=== PATIENT | female | born 1965 | race Caucasian/White ===

== ENCOUNTER 2019-03-31 17:34 | Emergency (ER) | payer OTHER ==
[2019-03-31 17:46] VITALS: BP 155/89
--- NOTE | 2019-03-31 17:54 | ED Physician Documentation ---
PD [facility] HEENT - Stated complaint Stated Complaint: RIGHT EAR PX - Chief complaint Chief Complaint: Heent - History obtained from History obtained from: Patient - History of Present Illness Timing - onset: How many weeks ago (2) Timing - duration: Weeks (2) Timing - details: Gradual onset, Still present, Waxing and waning Location: Right ear Improves: No: Medication (tried peroxide and cleaning ear without improvement) Associated symptoms: No: Fever, Congestion, Swollen nodes, Facial swelling Similar symptoms before: Has not had sx before Recently seen: Not recently seen Review of Systems Constitutional: denies: Fever, Chills, Myalgias Ears: reports: Ear pain (right ear, more itching and burning, and not pain per se.). denies: Loss of hearing, Drainage/discharge, Tinnitus/ringing Nose: denies: Rhinorrhea / runny nose, Congestion Throat: denies: Sore throat Respiratory: denies: Cough Skin: denies: Rash PD PAST MEDICAL HISTORY - Past Medical History Cardiovascular: None Respiratory: None Neuro: None Endocrine/Autoimmune: None - Present Medications Home Medications: Ambulatory Orders Medication Instructions Recorded Confirmed Clotrimazole 3 drops RIGHTEAR QID #1 bottle 03/31/19 Ipratropium [place] [Atrovent Hfa] 03/31/19 03/31/19 Levothyroxine Sodium [Synthroid] 275 mcg PO DAILY 03/31/19 03/31/19 Liothyronine Sodium 15 mcg PO DAILY 03/31/19 03/31/19 Loratadine 10 mg PO DAILY 03/31/19 03/31/19 Melatonin 5 mg PO QPM 03/31/19 03/31/19 Metoprolol Tartrate 50 mg DAILY 03/31/19 03/31/19 Metoprolol Tartrate 100 mg PO QPM 03/31/19 03/31/19 Neomycin/Polymyx/Hc Otic Drops 3 drops OT QID #1 bottle 03/31/19 [Cortisporin Ear Susp] Sertraline [Zoloft] 1 tab DAILY 03/31/19 03/31/19 Telmisartan/Hydrochlorothiazid 1 tab DAILY 03/31/19 03/31/19 [Micardis Hct 80-25 mg Tablet] - Allergies Allergies/Adverse Reactions: Allergies Allergy/AdvReac Type Severity Reaction Status Date / Time Penicillins Allergy Unknown Verified 07/18/19 17:46 PD ED PE NORMAL - Vitals Vital signs reviewed: Yes - General General: Alert and oriented X 3, Well developed/nourished - HEENT HEENT: Moist mucous membranes, Pharynx benign. No: Ears normal (left is normal; right with normal TM but outer part of the canal showing redness and some mild swelling. No exudate per se. No wax. ) - Neck Neck: Supple, no meningeal sign, Other (right preauricular small node. ) - Cardiac Cardiac: RRR, No murmur - Respiratory Respiratory: Clear bilaterally - Derm Derm: Normal color, Warm and dry Results - Vitals Vitals: Vital Signs - 24 hr 03/31/19 17:42 Temperature 36.4 C L Heart Rate 50 L Respiratory 16 Rate Blood Pressure 155/89 H O2 Saturation 97 Oxygen O2 Source Room air Departure - Departure Disposition: 01 Home, Self Care Clinical Impression: Otitis externa, fungal, right ear Condition: Stable Record reviewed to determine appropriate education?: Yes Instructions: ED Otitis Externa Prescriptions: Clotrimazole 3 drops RIGHTEAR QID #1 bottle Neomycin/Polymyx/Hc Otic Drops [Cortisporin Ear Susp] 3 drops OT QID #1 bottle Comments: Does look like an infection of the ear canal with some mild swelling. It actually looks possibly fungal though these can be bacterial as well. Use both the Cortisporin antibiotic eardrops as well as the Chlortrimazole antifungal drops 3-4 times a day for the next 4 to 5 days in that ear canal. To put drops in the ear, keep your head to the side so the ear is pointed upward and put the drops in the canal and let them settle down into the canal well and then tip your head upright and blot out the excess that drains out. Recheck if not improved over the next several days. The eardrum appears normal and he should not have any problems with flying or pressure changes. Discharge Date/Time: 03/31/19 18:30
== END 2019-03-31 18:30 | disposition home or self-care (01) ==
LOC: EDSEX → ED 17:34
DX: H60.8X1 Other otitis externa, right ear (principal)
CPT/HCPCS: 99282; 99284

== ENCOUNTER 2019-10-16 17:44 | Emergency (ER) | payer OTHER ==
[2019-10-16 17:52] VITALS: BP 146/90
--- NOTE | 2019-10-16 18:03 | ED Physician Documentation ---
PD HPI URI - Stated complaint Stated Complaint: SORE THROA,FEVER,HERNANDEZ - Chief complaint Chief Complaint: Fever - History obtained from History obtained from: Patient (She has been sick for about 50 hours with muscle aches, especially in the legs, fevers and chills, and a sore throat. No recent travel. 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.) Review of Systems Ten Systems: 10 systems reviewed and negative Constitutional: reports: Fever, Chills, Myalgias, Fatigue Nose: reports: Rhinorrhea / runny nose Throat: reports: Sore throat Respiratory: denies: Cough GI: denies: Vomiting, Diarrhea PD PAST MEDICAL HISTORY - Past Medical History Cardiovascular: None Respiratory: None Neuro: None Endocrine/Autoimmune: None - Past Surgical History Past Surgical History: Yes - Present Medications Home Medications: Ambulatory Orders Medication Instructions Recorded Confirmed Clotrimazole 3 drops RIGHTEAR QID #1 bottle 03/31/19 Ipratropium [place] [Atrovent Hfa] 03/31/19 03/31/19 Levothyroxine Sodium [Synthroid] 275 mcg PO DAILY 03/31/19 03/31/19 Liothyronine Sodium 15 mcg PO DAILY 03/31/19 03/31/19 Loratadine 10 mg PO DAILY 03/31/19 03/31/19 Melatonin 5 mg PO QPM 03/31/19 03/31/19 Metoprolol Tartrate 50 mg DAILY 03/31/19 03/31/19 Metoprolol Tartrate 100 mg PO QPM 03/31/19 03/31/19 Neomycin/Polymyx/Hc Otic Drops 3 drops OT QID #1 bottle 03/31/19 [Cortisporin Ear Susp] Sertraline [Zoloft] 1 tab DAILY 03/31/19 03/31/19 Telmisartan/Hydrochlorothiazid 1 tab DAILY 03/31/19 03/31/19 [Micardis Hct 80-25 mg Tablet] - Allergies Allergies/Adverse Reactions: Allergies Allergy/AdvReac Type Severity Reaction Status Date / Time Penicillins Allergy Unknown Verified 10/16/19 17:50 - Social History Does the pt smoke?: No Smoking Status: Never smoker PD ED PE NORMAL - Vitals Vital signs reviewed: Yes - General General: Alert and oriented X 3, No acute distress - HEENT HEENT: Ears normal, Pharynx benign - Neck Neck: Supple, no meningeal sign, No bony TTP - Cardiac Cardiac: RRR, No murmur - Respiratory Respiratory: No respiratory distress, Clear bilaterally - Abdomen Abdomen: Non tender - Derm Derm: No rash - Extremities Extremities: No edema, No calf tenderness / cord - Neuro Neuro: Alert and oriented X 3, No motor deficit, No sensory deficit, Normal speech Results - Vitals Vitals: Vital Signs - 24 hr 10/16/19 17:50 Temperature 37.4 C Heart Rate 78 Respiratory 17 Rate Blood Pressure 146/90 H O2 Saturation 95 Oxygen O2 Source Room air - Labs Labs: Laboratory Tests 10/16/19 10/16/19 18:15 18:15 Influenza A (Rapid) Negative Influenza B (Rapid) Negative Group A Strep Rapid Negative PD MEDICAL DECISION MAKING - ED course ED course: Seems like the flu, her flu swab is negative though. Could be a false negative but somewhat inconsequential in this otherwise healthy woman who is has been sick for about 58 hours now. Departure - Departure Disposition: 01 Home, Self Care Clinical Impression: Viral syndrome Condition: Good Record reviewed to determine appropriate education?: Yes Instructions: ED Viral Syndrome Comments: You were seen today for what frankly sounds like influenza, both flu and strep swabs were negative. Ibuprofen as needed for symptoms. Drink plenty of fluids, return for new or worsening symptoms. Follow-up with your doctor midweek if not better. Forms: Activity restrictions
[2019-10-16 18:24] LABS: RAPID STREP SCREEN Negative (Negative)
== END 2019-10-16 18:35 | disposition home or self-care (01) ==
LOC: ED 17:44
DX: B34.9 Viral infection, unspecified (principal)
CPT/HCPCS: 87070; 87275; 87276; 87430; 99283

== ENCOUNTER 2020-03-18 10:58 | Emergency (ER) | payer OTHER ==
--- NOTE | 2020-03-18 11:25 | ED Physician Documentation ---
PD HPI LOWER EXT INJURY - Stated complaint Stated Complaint: LT FOOT INJURY - Chief complaint Chief Complaint: Ext Problem - History obtained from History obtained from: Patient - History of Present Illness PD HPI LOW EXT INJURY LOCATION: Left, Ankle, Foot Type of injury: Twist (inversion of ankle as stepped off deck step accidentally into a small hole in ground while carrying plate of food. Caused her to fall forward/left. Pain and swelling to lateral foot and ankle.) Timing - onset: Yesterday Timing - details: Abrupt onset, Still present (more painful and swollen today.) Worsened by: Moving, Palpating, Other (weight bearing) Associated symptoms: Swelling, Discolored (bruising). 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 Psych: Depression Musculoskeletal: None - Past Surgical History Past Surgical History: Yes /INDUCTION HEAT TREATER: Dilation and currettage - Present Medications Home Medications: Ambulatory Orders Medication Instructions Recorded Confirmed Clotrimazole 3 drops RIGHTEAR QID #1 bottle 03/31/19 Ipratropium [place] [Atrovent Hfa] 03/31/19 03/31/19 Levothyroxine Sodium [Synthroid] 275 mcg PO DAILY 03/31/19 03/31/19 Liothyronine Sodium 15 mcg PO DAILY 03/31/19 03/31/19 Loratadine 10 mg PO DAILY 03/31/19 03/31/19 Melatonin 5 mg PO QPM 03/31/19 03/31/19 Metoprolol Tartrate 50 mg DAILY 03/31/19 03/31/19 Metoprolol Tartrate 100 mg PO QPM 03/31/19 03/31/19 Neomycin/Polymyx/Hc Otic Drops 3 drops OT QID #1 bottle 03/31/19 [Cortisporin Ear Susp] Sertraline [Zoloft] 1 tab DAILY 03/31/19 03/31/19 Telmisartan/Hydrochlorothiazid 1 tab DAILY 03/31/19 03/31/19 [Micardis Hct 80-25 mg Tablet] - Allergies Allergies/Adverse Reactions: Allergies Allergy/AdvReac Type Severity Reaction Status Date / Time Penicillins Allergy Unknown Verified 03/18/20 11:13 - Social History Does the pt smoke?: No Smoking Status: Never smoker Does the pt drink ETOH?: Yes Does the pt have substance abuse?: No - Immunizations Immunizations are current?: Yes - POLST Patient has POLST: No PD ED PE NORMAL - Vitals Vital signs reviewed: Yes - General General: Alert and oriented X 3, No acute distress, Well developed/nourished - Derm Derm: Normal color, Warm and dry - Extremities Extremities: Other (left foot and ankle with swelling and bruising anterolateral ankle and at the proximal 5th MT area. No tenderness above the malleoli. Medially not tender. Normal color and cap refill at toes. ) - Neuro Neuro: No motor deficit, No sensory deficit Results - Vitals Vitals: Vital Signs - 24 hr 03/18/20 03/18/20 11:11 12:24 Temperature 36.9 C 36.6 C Heart Rate 58 L 59 L Respiratory 18 16 Rate Blood Pressure 172/82 H 155/79 H O2 Saturation 99 98 Oxygen O2 Source Room air - Rads (name of study) left foot Radiology: Prelim report reviewed (nondisplaced proximal 5th MT fracture.), See rad report PD MEDICAL DECISION MAKING - ED course Complexity details: reviewed results, considered differential, d/w patient Departure - Departure Disposition: 01 Home, Self Care Clinical Impression: Inversion sprain of left ankle Qualifiers: Encounter type: initial encounter Qualified Code(s): S93.402A - Sprain of unspe cified ligament of left ankle, initial encounter Fracture of 5th metatarsal Qualifiers: Encounter type: initial encounter Fracture type: closed Fracture alignment: nondisplaced Laterality: left Qualified Code(s): S92.355A - Nondisplaced fracture of fifth metatarsal bone, left foot, initial encounter for closed fracture Condition: Stable Record reviewed to determine appropriate education?: Yes Instructions: Fifth Metatarsal Fx Follow-Up: Fritz Moore MD [Primary Care Provider] - Comments: Anti-inflammatories such as naproxen or ibuprofen 2-3 times a day. To that add Tylenol if needed for pains. Elevate rest and ice the foot often today and tomorrow to reduce swelling. Minimal standing or walking for the next 4 to 5 days to reduce swelling and allow improved pain control. Follow-up with your primary care in about a week for reevaluation and likely re-x-ray to ensure the fracture piece is holding position. Use the cast boot over the next 3 to 4 weeks and progress activity at the direction of your primary care, or better yet, orthopedics. Crutches as needed for partial to no weightbearing initially until follow-up and progress use at the direction of orthopedics Forms: Activity restrictions Discharge Date/Time: 03/18/20 12:24
--- NOTE | 2020-03-18 11:52 | XRAY Report ---
PROCEDURE: Foot 3 View LT INDICATIONS: fall TECHNIQUE: 3 views of the foot were acquired. COMPARISON: None FINDINGS: Bones: Horizontal minimally displaced base of fifth metatarsal fracture. No other fractures or disloc ations. No suspicious bony lesions. Soft tissues: No tibiotalar joint effusion. Achilles tendon appears normal. IMPRESSION: 1. Minimally displaced base of fifth metatarsal fracture. Reviewed by: José Cuellar MD on 03/18/2020 10:51 AM JOI Approved by: José Cuellar MD on 03/18/2020 10:51 AM JOI Station ID: [id number]
[2020-03-18 12:26] VITALS: BP 155/79
== END 2020-03-18 12:24 | disposition home or self-care (01) ==
LOC: ED 10:58
DX: S92.355A Nondisplaced fracture of fifth metatarsal bone, left foot, initial encounter for closed fracture (principal); S93.402A Sprain of unspecified ligament of left ankle, initial encounter; X50.1XXA Overexertion from prolonged static or awkward postures, initial encounter; Y93.01 Activity, walking, marching and hiking
CPT/HCPCS: 99283

== ENCOUNTER 2022-11-23 19:15 | Emergency (ER) | payer OTHER ==
[2022-11-23 19:27] VITALS: BP 157/106
[2022-11-23 19:41] LABS: BILIRUBIN,URINE NEGATIVE (NEGATIVE); GLUCOSE, URINE (UA) NEGATIVE (NEGATIVE); KETONES,URINE (UA) NEGATIVE (NEGATIVE); LEUKOCYTE ESTERASE, URINE MODERATE (NEGATIVE); NITRITE,URINE NEGATIVE (NEGATIVE); OCCULT BLOOD,URINE LARGE (NEGATIVE); PROTEIN,URINE 30 mg/dL (NEGATIVE); UROBILINOGEN,URINE 0.2 (NORMAL) E.U./dL (NORMAL)
[2022-11-23 19:47] LABS: CLARITY,URINE CLOUDY (CLEAR)
--- NOTE | 2022-11-23 19:47 | ED Physician Documentation ---
PD HPI FEMALE - Stated complaint Stated Complaint: FEMALE - Chief complaint Chief Complaint: UTI - History obtained from History obtained from: Patient - Additional information Additional information: 56-year-old woman developed burning dysuria and frequency 2 days ago. It got better yesterday but worse again today. Today it is associated with hematuria. No flank pain. She does not get frequent UTIs. Last was when she was in college. 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 - Present Medications Home Medications: Ambulatory Orders Medication Instructions Recorded Confirmed Clotrimazole 3 drops RIGHTEAR QID #1 bottle 03/31/19 Ipratropium [place] [Atrovent Hfa] 03/31/19 03/31/19 Levothyroxine Sodium [Synthroid] 275 mcg PO DAILY 03/31/19 03/31/19 Liothyronine Sodium 15 mcg PO DAILY 03/31/19 03/31/19 Loratadine 10 mg PO DAILY 03/31/19 03/31/19 Melatonin 5 mg PO QPM 03/31/19 03/31/19 Metoprolol Tartrate 50 mg DAILY 03/31/19 03/31/19 Metoprolol Tartrate 100 mg PO QPM 03/31/19 03/31/19 Neomycin/Polymyx/Hc Otic Drops 3 drops OT QID #1 bottle 03/31/19 [Cortisporin Ear Susp] Sertraline [Zoloft] 1 tab DAILY 03/31/19 03/31/19 Telmisartan/Hydrochlorothiazid 1 tab DAILY 03/31/19 03/31/19 [Micardis Hct 80-25 mg Tablet] Nitrofurantoin [Macrobid] 1 cap PO BID #10 cap 11/23/22 Phenazopyridine HCl [Pyridium] 200 mg PO TID PRN #6 tablet 11/23/22 - Allergies Allergies/Adverse Reactions: Allergies Allergy/AdvReac Type Severity Reaction Status Date / Time Penicillins Allergy Unknown Verified 11/23/22 19:27 - Social History Does the pt smoke?: No Smoking Status: Never smoker Does the pt drink ETOH?: Yes Does the pt have substance abuse?: No - Immunizations Immunizations are current?: Yes - POLST Patient has POLST: No PD ED PE NORMAL - Vitals Vital signs reviewed: Yes - General General: Alert and oriented X 3, No acute distress - Abdomen Abdomen: Non tender - Back Back: No CVA TTP - Neuro Neuro: Alert and oriented X 3, Normal speech Results - Vitals Vitals: Vital Signs - 24 hr 11/23/22 19:23 Temperature 36.8 C Heart Rate 65 Respiratory 16 Rate Blood Pressure 157/106 H O2 Saturation 96 Oxygen O2 Source Room air - Labs Labs: Laboratory Tests 11/23/22 19:33 Urine Color RED/BLOODY Urine Clarity CLOUDY Urine pH 6.0 Ur Specific [place] 1.020 Urine Protein 30 H Urine Glucose (UA) NEGATIVE Urine Ketones NEGATIVE Urine Occult Blood LARGE H Urine Nitrite NEGATIVE Urine Bilirubin NEGATIVE Urine Urobilinogen 0.2 (NORMAL) Ur Leukocyte Esterase MODERATE H Urine RBC TNTC H Urine WBC >25 H Ur Squamous Epith Cells RARE Squamous Urine Bacteria Rare Ur Microscopic Review INDICATED Urine Culture Comments INDICATED PD Medical Decision Making - ED course ED course: Urinalysis consistent with infection which is also consistent with her chief complaint and history and physical which is consistent with a hemorrhagic cystitis. Nothing in the history or physical to suggest pyelonephritis or sepsis. Departure - Departure Disposition: 01 Home, Self Care Clinical Impression: Cystitis Condition: Good Record reviewed to determine appropriate education?: Yes Instructions: ED UTI Cystitis Female Prescriptions: Nitrofurantoin [Macrobid] 1 cap PO BID #10 cap Phenazopyridine HCl [Pyridium] 200 mg PO TID PRN #6 tablet PRN Reason: dysuria Comments: We will culture your urine, the results should be done in 48-72 hours. If an antibiotic change is necessary we will call you. Return if worse in the meantime, especially if you develop increasing flank pain, fevers, or cannot keep down the medication. Discharge Date/Time: 11/23/22 19:59
[2022-11-23] MEDS ORDERED: PHENAZOPYRIDINE 100 MG TABLET PO STA (19:50)
[2022-11-23] MEDS ORDERED: NITROFURANTOIN MACRO 100 MG CAPSULE PO STA (19:50)
[2022-11-23 19:58] LABS: BACTERIA,URINE Rare /HPF (None Seen); RBC,URINE TNTC /HPF (0-5); SQUAMOUS EPITHELIAL CELL,UR RARE Squamous (<= Few); WBC,URINE >25 /HPF (0-5)
== END 2022-11-23 19:59 | disposition home or self-care (01) ==
LOC: ED 19:15
DX: N30.90 Cystitis, unspecified without hematuria (principal)
CPT/HCPCS: 81001; 87086; 99283; A9270; 81003